=== PATIENT | male | born 1995 | race Hispanic/Latino ===

== ENCOUNTER 2021-11-25 12:12 | Emergency (ER) | payer OTHER ==
[~2021-11-25] VITALS: Ht 172.7 cm; Wt 82.6 kg
[2021-11-25 12:29] VITALS: BP 120/73
[2021-11-25 12:54] LABS: BASOPHILS % (AUTO) 0.7 % (0.0-5.0); EOSINOPHILS % (AUTO) 0.9 % (0.0-8.0); HEMATOCRIT 46.4 % (42-54); LYMPHOCYTES % (AUTO) 19.9 % (21.0-51.0); MEAN CORPUSCULAR HEMOGLOBIN 29.2 pg (27.0-33.0); MEAN CORPUSCULAR HGB CONC 36.9 g/dL (32.0-36.0); MEAN CORPUSCULAR VOLUME 79.3 fL (79-99); MONOCYTES % (AUTO) 8.5 % (3.0-13.0); NEUTROPHILS % (AUTO) 69.3 % (40.0-77.0); PLATELET COUNT (AUTO) 238 K/uL (130-400); RED BLOOD CELL COUNT(AUTO) 5.85 MIL/uL (4.50-6.20); RED CELL DISTRIBUTION WIDTH 11.9 % (11.0-15.5); WHITE BLOOD COUNT (AUTO) 8.5 K/uL (4.8-10.8)
[2021-11-25] MEDS ORDERED: KETOROLAC 30MG VIAL (30MG/ML) IVP ONE (13:00)
[2021-11-25] MEDS ORDERED: ONDANSETRON 4MG INJ IVP ONE (13:00)
[2021-11-25] MEDS ORDERED: 0.9%NACL 1000ML 1,000 ML IV ONE (13:00)
[2021-11-25 13:11] LABS: APPEARANCE,URINE CLEAR (CLEAR); BILIRUBIN,URINE SMALL (NEGATIVE); COLOR,URINE YELLOW (YELLOW); GLUCOSE, URINE (UA) NEGATIVE (NEGATIVE); KETONES,URINE 40 mg/dL (NEGATIVE); LEUKOCYTE ESTERASE ,URINE NEGATIVE (NEGATIVE); NITRATE,URINE NEGATIVE (NEGATIVE); OCCULT BLOOD,URINE NEGATIVE (NEGATIVE); PROTEIN,URINE TRACE mg/dL (NEGATIVE)
[2021-11-25 13:15] LABS: CARBON DIOXIDE 27 mmol/L (21-32); CHLORIDE 104 mmol/L (101-111); CREATININE 1.4 mg/dL (0.5-1.5); GLOMERULAR FILTR. RATE CALC 65 mL/min (>60); GLUCOSE,RANDOM 98 mg/dL (70-105); POTASSIUM 3.8 mmol/L (3.5-5.1); SODIUM SERUM 140 mmol/L (136-145); UREA NITROGEN, BLOOD 11 mg/dL (7-18)
[2021-11-25 13:18] LABS: ALANINE AMINOTRANSFERASE 35 U/L (12-78); ALBUMIN 4.3 g/dL (3.5-5.0); ASPARTATE AMINOTRANSFERASE 20 U/L (10-37); LIPASE 61 U/L (114-286); TOTAL PROTEIN, SERUM 8.1 g/dL (6.0-8.3)
[2021-11-25 13:20] LABS: BACTERIA,URINE Rare /HPF (None Seen); RBC,URINE None Seen /HPF (0-1); SQUAMOUS EPITHELIAL CELL,UR Rare /HPF (0-2); WBC,URINE 0-1 /HPF (0-1)
[2021-11-25] MEDS ORDERED: ONDA4TAB10 PO (14:15)
[2021-11-25] MEDS ORDERED: DICY20TA2 PO (14:15)
[2021-11-25 14:30] LABS: CRP QUANTITATIVE < 2.00 mg/L (0.00-9.0)
== END 2021-11-25 14:54 | disposition home or self-care (01) ==
LOC: EDH 12:12
DX: R10.31 Right lower quadrant pain (principal); R11.2 Nausea with vomiting, unspecified; E86.0 Dehydration; Z79.899 Other long term (current) drug therapy
CPT/HCPCS: 99284; 74176; 96374; 96361; 96375; 80053; 83690; 85025; 86140; 81001; 36415; J7030; J2405; J1885